=== PATIENT | female | born 1995 | race Caucasian/White ===

== ENCOUNTER 2023-03-03 17:52 | Emergency (ER) | payer BC ==
[2023-03-03] MEDS ORDERED: HYDROcodone/Acetaminophen 5/325 mg Tablet ONE (19:37)
[2023-03-03] MEDS ORDERED: Ciprofloxacin 500 MG TAB ONE (19:37)
== END 2023-03-03 19:44 | disposition home or self-care (01) ==
LOC: MADERS 17:52
DX: H60.502 Unspecified acute noninfective otitis externa, left ear (principal)
CPT/HCPCS: 99282